=== PATIENT | male | born 1970 | race Hispanic/Latino ===

== ENCOUNTER 2019-04-04 01:30 | Emergency (ER) | payer OTHER | END 2019-04-04 03:23 | disposition home or self-care (01) | LOC: EDH 01:30 | DX: S01.01XA Laceration without foreign body of scalp, initial encounter (principal); W26.8XXA Contact with other sharp object(s), not elsewhere classified, initial encounter; Y93.89 Activity, other specified; Y92.89 Other specified places as the place of occurrence of the external cause; Y99.8 Other external cause status | CPT/HCPCS: 12001 ==

== ENCOUNTER 2021-01-22 07:19 | Emergency (ER) | payer OTHER ==
[~2021-01-22] VITALS: Ht 190.5 cm; Wt 102.1 kg
[2021-01-22] MEDS ORDERED: LIDOCAINE HCL 1% 20 ML VIAL ONE (07:38)
[2021-01-22] MEDS ORDERED: LIDOCAINE 1%-EPI 1:100,000 20 ML VIAL IJ SCH (08:00)
[2021-01-22 08:28] LABS: BASOPHILS % (AUTO) 1.6 % (0.0-5.0); LYMPHOCYTES % (AUTO) 46.2 % (21.0-51.0); MEAN CORPUSCULAR HGB CONC 36.3 g/dL (32.0-36.0); MEAN CORPUSCULAR VOLUME 88.1 fL (79-99); MONOCYTES % (AUTO) 7.2 % (3.0-13.0); NEUTROPHILS % (AUTO) 39.7 % (40.0-77.0); PLATELET COUNT (AUTO) 251 K/uL (130-400); RED BLOOD CELL COUNT(AUTO) 5.22 MIL/uL (4.50-6.20); RED CELL DISTRIBUTION WIDTH 12.5 % (11.0-15.5); WHITE BLOOD COUNT (AUTO) 6.4 K/uL (4.8-10.8)
[2021-01-22 08:45] LABS: CREATININE 0.9 mg/dL (0.5-1.5); POTASSIUM 3.3 mmol/L (3.5-5.1)
[2021-01-22 08:46] LABS: BILIRUBIN,TOTAL 0.7 mg/dL (0.2-1.0); TOTAL PROTEIN, SERUM 7.7 g/dL (6.0-8.3)
[2021-01-22 08:56] LABS: INR 1.02 (0.85-1.15); PROTHROMBIN TIME 11.1 SEC (9.6-11.6)
[2021-01-22] MEDS ORDERED: AMOX-429 PO (09:40)
[2021-01-22] MEDS ORDERED: TETANUS/DIPHTHERIA TOXOID [ADULT] 0.5 ML VIAL IM SCH (10:00)
[2021-01-22 10:39] VITALS: BP 127/77
== END 2021-01-22 10:47 | disposition home or self-care (01) ==
LOC: EDH 07:19
DX: S01.01XA Laceration without foreign body of scalp, initial encounter (principal); F10.20 Alcohol dependence, uncomplicated; W18.39XA Other fall on same level, initial encounter; Y93.89 Activity, other specified; Y92.89 Other specified places as the place of occurrence of the external cause; Y99.8 Other external cause status
CPT/HCPCS: 12001; 36415; 70450; 72125; 80053; 85025; 85610; 99285; J3490; 90714

== ENCOUNTER 2021-02-03 15:46 | Emergency (ER) | payer OTHER ==
[~2021-02-03] VITALS: Ht 190.5 cm; Wt 129.3 kg
[~2021-02-03 15:46] MED LIST: AMOX-429 PO
== END 2021-02-03 16:16 | disposition home or self-care (01) ==
LOC: EDH 15:49
DX: S01.01XD Laceration without foreign body of scalp, subsequent encounter (principal); X58.XXXD Exposure to other specified factors, subsequent encounter
CPT/HCPCS: 99281